=== PATIENT | male | born 1955 | race Caucasian/White ===

== ENCOUNTER 2016-11-14 15:20 | Observation (INO) | payer BC ==
[~2016-11-14] VITALS: Ht 167.6 cm; Wt 71.8 kg
[~2016-11-14 15:20] MED LIST: ASPIRIN 81M81 MG/TA2 PO; COLACE 100100 MG/CAP PO; HYGROTON25 MG PO; LOPRESSOR 225 MG/TAB PO; MULTIPLE VITAMI1 CAP PO; NORCO 325 MG-51 TAB PO; PLAVIX 75MG TAB75 MG PO; PYRIDIUM 100MG100 MG PO; PYRIDIUM200 M1 PO; VITAMIN D1000 IU PO; ZOCOR 80MG80 MG PO
[2016-11-14] MEDS ORDERED: EPA FISH OIL1 SGL PO (16:05)
[2016-11-14 16:17] LABS: ADJUSTED CALCIUM 9.2 mg/dL (8.4-10.2); ALANINE AMINOTRANSFERASE 37 U/L (21-72); ALBUMIN 4.2 gm/dL (3.5-5.0); ALKALINE PHOSPHATASE 62 U/L (50-136); ANION GAP 14 mmol/L (7-16); BILIRUBIN,TOTAL 0.9 mg/dL (0.0-1.0); BLOOD UREA NITROGEN 26 mg/dL (9-20); CALCIUM 9.4 mg/dL (8.4-10.2); CARBON DIOXIDE 26 mmol/L (22-30); CHLORIDE 100 mmol/L (98-107); CREATININE, serum 0.87 mg/dL (0.66-1.25); GLUCOSE 93 mg/dL (74-106); LIPASE 97 U/L (23-300); POTASSIUM 3.5 mmol/L (3.4-5.0); SODIUM 140 mmol/L (137-145); TOTAL PROTEIN 7.3 gm/dL (6.4-8.2)
[2016-11-14 16:24] LABS: BASO % 0.5 % (0.0-2.0); EOS # 0.1 (0.0-0.7); EOS % 1.4 % (0-4.0); GRAN # 3.1 (1.4-6.5); GRAN % 52.5 % (42.2-75.2); HEMATOCRIT 43.2 % (42.0-52.0); HEMOGLOBIN 15.2 g/dl (13.5-18.0); LYMPH # 2.2 (1.2-3.4); LYMPH % 36.3 % (20.0-51.0); MEAN CELL VOLUME 88 fl (80.0-100.0); MEAN CORPUSCULAR HEMOGLOBIN 31 pg (27.0-31.0); MEAN CORPUSCULAR HGB CONC 35 g/dl (33.0-37.0); MEAN PLATELET VOLUME 9.9 fl (7.4-10.4); MONO # 0.5 (0.1-0.6); MONO % 9.1 % (1.7-9.3); PLATELET COUNT 173 K/mm3 (130-400); RED BLOOD COUNT 4.91 M/mm3 (4.20-5.60); REDCELL DISTRIBUTION WIDTH-CV 13.1 % (11.5-14.5); WHITE BLOOD COUNT 5.9 K/mm3 (4.8-10.8)
[2016-11-14 16:29] LABS: B-TYPE NATRIURETIC PEPTIDE 23 pg/mL (0-125)
[2016-11-14 16:41] LABS: TROPONIN-I < 0.012 ng/mL (0.000-0.034)
[2016-11-14 18:46] VITALS: BP 128/90; PULSE 70; TEMP 98
[2016-11-14 20:31] VITALS: BP 123/84; PULSE 77; TEMP 97.7
[2016-11-15] VITALS (7 sets, daily range): BP systolic 103–119; BP diastolic 69–82; PULSE 57–92; TEMP 97.5–98.5
[2016-11-16] VITALS (10 sets, daily range): BP systolic 96–126; BP diastolic 63–92; PULSE 71–88; TEMP 97.9–98.7
[2016-11-16 07:04] LABS: BASO % 0.6 % (0.0-2.0); EOS # 0.1 (0.0-0.7); EOS % 1.1 % (0-4.0); GRAN # 3.5 (1.4-6.5); GRAN % 55.4 % (42.2-75.2); HEMATOCRIT 43.2 % (42.0-52.0); HEMOGLOBIN 15.2 g/dl (13.5-18.0); LYMPH # 2.2 (1.2-3.4); LYMPH % 33.9 % (20.0-51.0); MEAN CELL VOLUME 87 fl (80.0-100.0); MEAN CORPUSCULAR HEMOGLOBIN 31 pg (27.0-31.0); MEAN CORPUSCULAR HGB CONC 35 g/dl (33.0-37.0); MEAN PLATELET VOLUME 9.7 fl (7.4-10.4); MONO # 0.6 (0.1-0.6); MONO % 8.7 % (1.7-9.3); PLATELET COUNT 174 K/mm3 (130-400); RED BLOOD COUNT 4.97 M/mm3 (4.20-5.60); WHITE BLOOD COUNT 6.4 K/mm3 (4.8-10.8)
[2016-11-16 07:22] LABS: ADJUSTED CALCIUM 9.4 mg/dL (8.4-10.2); ALANINE AMINOTRANSFERASE 39 U/L (21-72); ALBUMIN 3.9 gm/dL (3.5-5.0); ALKALINE PHOSPHATASE 59 U/L (50-136); ANION GAP 11 mmol/L (7-16); BILIRUBIN,TOTAL 0.9 mg/dL (0.0-1.0); BLOOD UREA NITROGEN 19 mg/dL (9-20); CALCIUM 9.3 mg/dL (8.4-10.2); CARBON DIOXIDE 27 mmol/L (22-30); CHLORIDE 99 mmol/L (98-107); CHOLESTEROL 113 mg/dL (120-200); CREATININE, serum 0.86 mg/dL (0.66-1.25); GLUCOSE 94 mg/dL (74-106); HDL CHOLESTEROL 40 mg/dL; LDL CHOLESTEROL 58 mg/dL; POTASSIUM 3.6 mmol/L (3.4-5.0); SODIUM 137 mmol/L (137-145); TOTAL PROTEIN 6.6 gm/dL (6.4-8.2); TRIGLYCERIDE 74 mg/dL
[2016-11-16 07:44] LABS: TROPONIN-I < 0.012 ng/mL (0.000-0.034)
[2016-11-16 08:00] LABS: THYROID STIMULATING HORMONE 0.934 uIU/mL (0.465-4.680)
[2016-11-16 09:48] LABS: INR 1.1 (0.8-3.0); PROTHROMBIN TIME 12.6 SECONDS (9.7-12.8)
[2016-11-16 12:38] LABS: INFLUENZA B NEGATIVE
[2016-11-16] MEDS ORDERED: PRINIVIL2.5 MG PO (16:12)
[2016-11-16] MEDS ORDERED: HYGROTON 2525 MG/TAB PO (16:12)
== END 2016-11-16 18:04 | disposition home or self-care (01) ==
LOC: COL.ER 15:20 → MEDICAL 17:11
PROVIDERS: Emergency Medicine; Internal Medicine; Internal Medicine Cardiovascular Disease; Physician Assistant
DX: I25.110 Atherosclerotic heart disease of native coronary artery with unstable angina pectoris (principal); I10 Essential (primary) hypertension; Z95.5 Presence of coronary angioplasty implant and graft; E78.5 Hyperlipidemia, unspecified; R00.2 Palpitations; Z80.52 Family history of malignant neoplasm of bladder
CPT/HCPCS: 99232-AI; C1769; C1887; C1894; G0378; J1644; J1650; J2250; J3010; J7030; Q9967

== ENCOUNTER 2017-05-20 21:14 | Emergency (ER) | payer BC ==
[~2017-05-20] VITALS: Ht 167.6 cm; Wt 74.1 kg
[~2017-05-20 21:14] MED LIST changes: +EPA FISH OIL1 SGL PO; +HYGROTON 2525 MG/TAB PO; +PRINIVIL2.5 MG PO
[2017-05-20 21:25] VITALS: TEMP 98.5
[2017-05-21 01:00] VITALS: BP 131/71; PULSE 69
== END 2017-05-21 01:02 | disposition home or self-care (01) ==
LOC: COL.ER 21:14
DX: L03.011 Cellulitis of right finger (principal); Z79.82 Long term (current) use of aspirin

== ENCOUNTER 2017-05-21 17:24 | Emergency (ER) | payer BC ==
[~2017-05-21] VITALS: Ht 167.6 cm; Wt 74.1 kg
[2017-05-21 17:27] VITALS: BP 118/84; TEMP 98.3
[2017-05-21 18:42] VITALS: PULSE 63
== END 2017-05-21 18:53 | disposition home or self-care (01) ==
LOC: COL.ER 17:24
DX: L02.511 Cutaneous abscess of right hand (principal); Z79.82 Long term (current) use of aspirin